=== PATIENT | female | born 1990 | race Caucasian/White ===

== ENCOUNTER 2019-09-20 06:08 | Inpatient (IN) | payer BC ==
[2019-09-19 14:22] VITALS: BMI 32.3
[2019-09-20] MEDS ORDERED: LACTATED RINGERS 1,000 ML IV ONE (06:19)
[2019-09-20] MEDS ORDERED: CITRIC ACID-SODIUM CITRATE 15 ML CUP PO ONE (06:19)
[2019-09-20 07:24] LABS: Basophils # (A) 0.1 k/uL (0-0.2); Basophils % (A) 1 %; Eosinophils # (A) 0.1 k/uL (0-0.7); Eosinophils % (A) 1 %; HCT 37.5 % (34.0-46.0); HGB 12.3 gm/dL (11.4-16.0); Lymphocytes % (A) 27 %; MCH 30.5 pg (25.0-35.0); MCHC 32.9 g/dL (31.0-37.0); MCV 92.6 fL (80.0-100.0); Mean Platelet Volume 9.5; Monocytes # (A) 0.3 k/uL (0-1.0); Monocytes % (A) 5 %; Neutrophils % (A) 66 %; Platelet Count 220 k/uL (150-450); RBC 4.05 m/uL (3.80-5.40); RDW 13.3 % (11.5-15.5); WBC 7.6 k/uL (3.8-10.6)
[2019-09-20] MEDS ORDERED: SODIUM CHLORIDE 0.9% 100 ML BAG ONE (07:50)
[2019-09-20] MEDS ORDERED: NALBUPHINE 10 MG/ML (1 ML AMP) ONE (07:50)
[2019-09-20] MEDS ORDERED: PHENYLEPHRINE-0.9% NACL SYG 1 MG/10 ML SYRINGE ONE (07:50)
[2019-09-20] MEDS ORDERED: ONDANSETRON 4 MG/2 ML VIAL ONE (07:50)
[2019-09-20] MEDS ORDERED: OXYTOCIN 10 UNIT/ML 1 ML VIAL ONE (07:50)
[2019-09-20] MEDS ORDERED: KETOROLAC 30 MG/ML 1 ML VIAL ONE (07:50)
[2019-09-20] MEDS ORDERED: ePHEDrine SULFATE/0.9% NACL/PF 50 MG/5 ML SYRINGE IV ONE (07:50)
[2019-09-20] MEDS ORDERED: ceFAZolin 1,000 MG VIAL ONE (07:50)
[2019-09-20] MEDS ORDERED: MORPHINE SULFATE (PF) 0.3 MG/0.3 ML SYR ONE (07:50)
[2019-09-20] MEDS ORDERED: SODIUM CHLORIDE 0.9% IRRIG 1,000 ML BTL IRRIGATION ONE (07:50)
[2019-09-20] MEDS ORDERED: ACETAMINOPHEN TAB 325 MG TAB PO PRN (08:36)
[2019-09-20] MEDS ORDERED: SIMETHICONE 80 MG CHEWABLE PO PRN (08:36)
[2019-09-20] MEDS ORDERED: ONDANSETRON 4 MG/2 ML VIAL IVP PRN (08:36)
[2019-09-20] MEDS ORDERED: diphenhydrAMINE 25 MG CAP PO PRN (08:36)
[2019-09-20] MEDS ORDERED: METOCLOPRAMIDE 5 MG/ML 2 ML VIAL IVP PRN (08:36)
[2019-09-20] MEDS ORDERED: LANOLIN CREAM 5 GM TUBE TOPICAL PRN (08:36)
[2019-09-20] MEDS ORDERED: diphenhydrAMINE 50 MG/ML 1 ML VIAL IVP PRN ×2 (08:36)
[2019-09-20] MEDS ORDERED: HYDROcodone/APAP 7.5-325MG 1 EACH TAB PO PRN (08:36)
[2019-09-20] MEDS ORDERED: diphenhydrAMINE 50 MG CAP PO PRN (08:36)
[2019-09-20] MEDS ORDERED: ZOLPIDEM 5 MG TAB PO PRN (08:36)
[2019-09-20] MEDS ORDERED: NALOXONE 0.4 MG/ML 1 ML VIAL IV PRN (08:36)
[2019-09-20] MEDS ORDERED: OXYTOCIN 20 UNITS/1000 ML NS 1,000 ML IV SCH (08:45)
[2019-09-20] MEDS: KETOROLAC 30 MG/ML 1 ML VIAL IVP PRN ×2 (17:40→23:09)
[2019-09-20] MEDS: SENNOSIDES-DOCUSATE SODIUM 1 EACH TAB PO SCH (20:49)
[2019-09-21 05:52] LABS: Basophils % (A) 0 %; Eosinophils # (A) 0.1 k/uL (0-0.7); Eosinophils % (A) 1 %; HCT 31.5 % (34.0-46.0); HGB 10.5 gm/dL (11.4-16.0); Lymphocytes # (A) 1.3 k/uL (1.0-4.8); Lymphocytes % (A) 15 %; MCHC 33.4 g/dL (31.0-37.0); MCV 92.8 fL (80.0-100.0); Mean Platelet Volume 9.9; Monocytes # (A) 0.4 k/uL (0-1.0); Monocytes % (A) 5 %; Neutrophils # (A) 6.9 k/uL (1.3-7.7); Neutrophils % (A) 78 %; Platelet Count 179 k/uL (150-450); RBC 3.39 m/uL (3.80-5.40); RDW 12.9 % (11.5-15.5); WBC 8.8 k/uL (3.8-10.6)
[2019-09-21] MEDS: KETOROLAC 30 MG/ML 1 ML VIAL IVP PRN (07:28)
[2019-09-21] MEDS: SENNOSIDES-DOCUSATE SODIUM 1 EACH TAB PO SCH ×2 (07:28→21:15)
--- NOTE | 2019-09-21 08:19 | P.HPOB ---
History of Present Illness H&P Date: 09/20/19 Chief Complaint: Repeat low transverse with tubal ligation 29-year-old presents at 39 weeks and 2 days for repeat low transverse C- section and tubal ligation. Review of Systems All systems: negative Constitutional: Denies chills, Denies fever Eyes: denies blurred vision, denies pain Ears, nose, mouth and throat: Denies headache, Denies sore throat Cardiovascular: Denies chest pain, Denies shortness of breath Respiratory: Denies cough Gastrointestinal: Denies abdominal pain, Denies diarrhea, Denies nausea, Denies vomiting Genitourinary: Denies dysuria, Denies hematuria Musculoskeletal: Denies myalgias Integumentary: Denies pruritus, Denies rash Neurological: Denies numbness, Denies weakness Psychiatric: Denies anxiety, Denies depression Endocrine: Denies fatigue, Denies weight change Past Medical History History of Any Multi-Drug Resistant Organisms: None Reported Past Surgical History: Section Additional Past Surgical History / Comment(s): laparoscopic cornual preg repair w/ rt fallopian tube removed w/ partial uterus removal on rt side. Past Anesthesia/Blood Transfusion Reactions: Postoperative Nausea & Vomiting (PONV) Additional Past Anesthesia/Blood Transfusion Reaction / Comment(s): post op nv after spinal with c section,no hx of problems with prior blood transfusion Past Psychological History: No Psychological Hx Reported Smoking Status: Never smoker Past Alcohol Use History: None Reported Past Drug Use History: None Reported - Past Family History Mother Family Medical History: No Reported History Medications and Allergies Home Medications Medication Instructions Recorded Confirmed Type Iron 18 mg PO DAILY 09/19/19 09/19/19 History Magnesium Citrate Supplement 1 tsp PO DAILY 09/19/19 09/20/19 History Pnv No.95/Ferrous Fum/Folic AC 1 each PO DAILY 09/19/19 09/20/19 History [ Multivitamin Tablet] Allergies Allergy/AdvReac Type Severity Reaction Status Date / Time latex Allergy Rash/Hives Verified 09/20/19 06:19 Exam Osteopathic Statement: *. No significant issues noted on an osteopathic structural exam other than those noted in the History and Physical/Consult. Vital Signs Temp Pulse Resp BP Pulse Ox 09/21/19 04:51 96.8 F L 65 14 100/62 09/20/19 23:35 98.0 F 62 15 104/59 09/20/19 19:57 98.1 F 53 L 18 107/65 98 09/20/19 16:30 97.9 F 59 L 16 135/83 100 09/20/19 12:00 97.6 F 69 16 103/64 99 09/20/19 10:30 97.4 F L 56 L 16 115/76 98 09/20/19 10:00 97.5 F L 67 16 114/71 97 09/20/19 09:30 63 16 111/75 97 09/20/19 09:15 97.1 F L 69 16 105/67 98 09/20/19 09:00 97.1 F L 70 16 113/78 98 09/20/19 08:45 69 16 106/56 98 09/20/19 08:30 96.8 F L 78 16 103/53 96 Intake and Output 09/20/19 09/21/19 09/21/19 22:59 06:59 14:59 Output Total 1500 900 Balance -1500 -900 Output: Urine 1500 900 Other: # Voids 1 1 Heart: Regular rate and rhythm Lungs: Clear to auscultation bilaterally Abdomen: Soft, nontender Extremities: Negative Homans sign Results Result Diagrams: 09/21/19 05:31 Abnormal Lab Results - Last 24 Hours (Table) 09/21/19 Range/Units 05:31 RBC 3.39 L (3.80-5.40) m/uL Hgb 10.5 L (11.4-16.0) gm/dL Hct 31.5 L (34.0-46.0) % Assessment and Plan (1) 39 weeks gestation of Current Visit: Yes Status: Acute Code(s): Z3A.39 - 39 WEEKS GESTATION OF SNOMED Code(s): 51340321 (2) Previous section Current Visit: Yes Status: Acute Code(s): Z98.891 - HISTORY OF UTERINE SCAR FROM PREVIOUS SURGERY SNOMED Code(s): 608844549 (3) Family planning Current Visit: Yes Status: Acute Code(s): Z30.09 - ENCOUNTER FOR OTH GENERAL CNSL AND ADVICE ON CONTRACEPTION SNOMED Code(s): 293840597 Plan: 1. Repeat low transverse with tubal ligation
--- NOTE | 2019-09-21 08:22 | P.OP ---
Date of Procedure: 09/20/19 Preoperative Diagnosis: 1. 39 weeks gestation 2. Previous section 3. Family planning Postoperative Diagnosis: 1. 39 weeks gestation 2. Previous section 3. Family planning Procedure(s) Performed: Repeat low transverse with tubal ligation Anesthesia: spinal Surgeon: Lizzette Gonzalez Insurance Billing Specialist #1: Too Vanessa Estimated Blood Loss (ml): 500 IV fluids (ml): 600 Urine output (ml): 100 Pathology: other (Left fallopian tube) Condition: stable Disposition: floor Operative Findings: Normal uterus, missing right fallopian tube, normal left tube and ovary, viable female, Apgars 9, 9, weight 6 lbs. 14 oz. Description of Procedure: Patient was taken to the operating room where spinal anesthesia was found be adequate. She was prepped and draped in normal sterile fashion in dorsal supine position with a leftward tilt. Pfannenstiel skin incision was made the scalpel and carried through to the underlying layer of fascia with the scalpel. Fascia was incised in midline and carried bilaterally with the Walker scissors. The superior aspect of the fascial incision was grasped with Arik clamps elevated and the underlying rectus muscles dissected off with the Walker's. Attention was then turned to inferior aspect of same incision which in a similar fashion was grasped tented up and the underlying rectus muscles dissected off with the Walker's. The rectus muscles were the midline and the peritoneum was identified tented up and entered sharply with the scalpel. The incision was extended superiorly and inferiorly with good visualization of the bladder. The bladder blade was inserted and the vesicouterine peritoneum was incised the Metzenbaums then carried bilaterally and bladder flap created digitally. A low transverse incision was then made on the uterus with the scalpel. This was carried bilaterally and digital manner. 's head delivered atraumatically, nose and mouth bulb suctioned, cord clamped and cut, infant handed off to waiting nurses. Apgars 9,9, weight 6 lbs. 14 oz. Placenta delivered manually, intact with three-vessel cord. The uterus is exteriorized and cleared of all clots and debris. The uterine incision was closed with 0 Vicryl in a running locked fashion. Second layer of the same sutures used in imbricating fashion to obtain excellent hemostasis. The left fallopian tube and ovary appeared normal, the right ovary appeared normal, the right fallopian tube was missing as per her previous surgery. The left fallopian tube was grasped with a hemostat and a window was made in the mesosalpinx with the Bovie. The fallopian tube was doubly ligated a section was removed, pedicles cauterized with the Bovie. The uterus was placed back into the abdomen. The peritoneum was reapproximated usin g 2-0 Vicryl in a running fashion. The muscles were reapproximated using 2-0 Vicryl in interrupted fashion. The fascia was reapproximated using 0 Vicryl in a running fashion. The subcutaneous tissues closed with 3-0 Vicryl running fashion. The skin was closed michael. Patient tolerated the procedure well, sponge and instrument counts were correct times 2 and she was taken to the recovery room in stable condition.
--- NOTE | 2019-09-21 08:23 | P.PNOBGPC ---
Subjective - Subjective Principal diagnosis: Status post repeat low transverse with tubal ligation. Day #1 Interval history: Patient seen and examined. Denies nausea, vomiting, chest pain, shortness of breath or calf pain. Patient reports: Reports appetite normal, Reports voiding normally, Reports pain well controlled, Reports ambulating normally Omar: doing well Objective - Vital Signs Latest vital signs: Vital Signs Temp Pulse Resp BP Pulse Ox 09/21/19 04:51 96.8 F L 65 14 100/62 09/20/19 23:35 98.0 F 62 15 104/59 09/20/19 19:57 98.1 F 53 L 18 107/65 98 09/20/19 16:30 97.9 F 59 L 16 135/83 100 09/20/19 12:00 97.6 F 69 16 103/64 99 09/20/19 10:30 97.4 F L 56 L 16 115/76 98 09/20/19 10:00 97.5 F L 67 16 114/71 97 09/20/19 09:30 63 16 111/75 97 09/20/19 09:15 97.1 F L 69 16 105/67 98 09/20/19 09:00 97.1 F L 70 16 113/78 98 09/20/19 08:45 69 16 106/56 98 09/20/19 08:30 96.8 F L 78 16 103/53 96 Intake and Output 09/20/19 09/21/19 09/21/19 22:59 06:59 14:59 Output Total 1500 900 Balance -1500 -900 Output: Urine 1500 900 Other: # Voids 1 1 - Exam Lungs: bilateral: normal Chest: Normal S1, Normal S2 Extremities: Present: normal Abdomen: Present: normal appearance, soft. Absent: distention, tenderness Incision: Present: normal, dry, intact Uterus: Present: normal, firm - Labs Labs: Abnormal Lab Results - Last 24 Hours (Table) 09/21/19 Range/Units 05:31 RBC 3.39 L (3.80-5.40) m/uL Hgb 10.5 L (11.4-16.0) gm/dL Hct 31.5 L (34.0-46.0) % Assessment and Plan (1) 39 weeks gestation of Current Visit: Yes Status: Resolved Code(s): Z3A.39 - 39 WEEKS GESTATION OF SNOMED Code(s): 14171572 (2) Previous section Current Visit: Yes Status: Resolved Code(s): Z98.891 - HISTORY OF UTERINE SCAR FROM PREVIOUS SURGERY SNOMED Code(s): 921205084 (3) Family planning Current Visit: Yes Status: Resolved Code(s): Z30.09 - ENCOUNTER FOR OT GENERAL CNSL AND ADVICE ON CONTRACEPTION SNOMED Code(s): 235480970 (4) Status post repeat low transverse section Current Visit: Yes Status: Acute Code(s): Z98.891 - HISTORY OF UTERINE SCAR FROM PREVIOUS SURGERY SNOMED Code(s): 782356514 (5) Status post tubal ligation at time of delivery, current hosp Current Visit: Yes Status: Acute Code(s): O80 - ENCOUNTER FOR FULL-TERM UNCOMPLICATED DELIVERY; Z30.2 - ENCOUNTER FOR STERILIZATION SNOMED Code(s): 599038502 Plan: 1. Increase ambulation 2. By mouth pain medication 3. Regular diet
[2019-09-21] MEDS: LACTATED RINGERS 1,000 ML IV SCH ×2 (09:44→09:45)
--- NOTE | 2019-09-21 11:42 | P.PN ---
Progress Note - Text 09/21/19 702am 29-year-old female status post with a spinal Duramorph. Patient seen and evaluated this morning for postop pain control, patient has a VAS of 1 with no complains of nausea vomiting this morning. Doing well
[2019-09-21] MEDS: IBUPROFEN 600 MG TAB PO PRN ×2 (14:05→21:19)
[2019-09-22] MEDS: IBUPROFEN 600 MG TAB PO PRN ×2 (04:32→10:21)
[2019-09-22] MEDS: SENNOSIDES-DOCUSATE SODIUM 1 EACH TAB PO SCH (08:43)
--- NOTE | 2019-09-22 09:22 | P.DS ---
Providers Date of admission: 09/20/19 06:08 Expected date of discharge: 09/22/19 Attending physician: Lizzette Gonzalez Primary care physician: Stated None - Discharge Diagnosis(es) (1) 39 weeks gestation of Current Visit: Yes Status: Resolved (2) Previous section Current Visit: Yes Status: Resolved (3) Family planning Current Visit: Yes Status: Resolved (4) Status post repeat low transverse section Current Visit: Yes Status: Acute (5) Status post tubal ligation at time of delivery, current hosp Current Visit: Yes Status: Acute Hospital Course: Patient presented for repeat low transverse and tubal ligation. She underwent this procedure without complication. Postoperatively her course was uneventful. She'll be discharged home post operative day #2 in stable condition to follow-up with me in one week. She denies nausea, vomiting, chest pain, shortness of breath or calf pain. Her pain is well-controlled she is tolerating regular diet and passing flatus. Plan - Discharge Summary Discharge Rx Participant: No New Discharge Prescriptions: New Ibuprofen [Motrin] 600 mg PO Q6HR PRN #30 tab PRN Reason: Mild Pain Or Fever >= 100.5 HYDROcodone/APAP 7.5-325MG [[place] 7.5-325] 1 each PO Q6H PRN #12 tab PRN Reason: Severe Pain No Action Iron 18 mg PO DAILY Pnv No.95/Ferrous Fum/Folic AC [ Multivitamin Tablet] 1 each PO DAILY Magnesium Citrate Supplement 1 tsp PO DAILY Discharge Medication List Iron 18 mg PO DAILY 09/19/19 [History] Magnesium Citrate Supplement 1 tsp PO DAILY 09/19/19 [History] Pnv No.95/Ferrous Fum/Folic AC [ Multivitamin Tablet] 1 each PO DAILY 09/19/19 [History] HYDROcodone/APAP 7.5-325MG [[place] 7.5-325] 1 each PO Q6H PRN #12 tab 09/22/19 [Rx] Ibuprofen [Motrin] 600 mg PO Q6HR PRN #30 tab 09/22/19 [Rx] Follow up Appointment(s)/Referral(s): Lizzette Gonzalez DO [Doctor of Osteopathic Medicine] - 1 Week Discharge Disposition: HOME SELF-CARE
[2019-09-22 09:32] VITALS: BP 121/69; PULSE 83; RESP 18; TEMP 97.6
== END 2019-09-22 11:20 | disposition home or self-care (01) | DRG 785 ==
LOC: 4FBP 06:08
PROVIDERS: ADMIT Obstetrics & Gynecology; ATTEND Obstetrics & Gynecology
PROC: 0UB60ZZ Excision of Left Fallopian Tube, Open Approach (ICD-10-PCS; 2019-09-20)
PROC: 10D00Z1 Extraction of Products of Conception, Low, Open Approach (ICD-10-PCS; principal; 2019-09-20 08:00)
DX: O34.211 Maternal care for low transverse scar from previous cesarean delivery (principal); Z30.2 Encounter for sterilization; Z37.0 Single live birth; Z3A.39 39 weeks gestation of pregnancy; Z79.899 Other long term (current) drug therapy; Z90.79 Acquired absence of other genital organ(s); Z87.59 Personal history of other complications of pregnancy, childbirth and the puerperium; Z91.040 Latex allergy status
CPT/HCPCS: 85025; 86850; 86900; 86901; 88302